=== PATIENT | female | born 1985 | race Two or more races ===

== ENCOUNTER 2022-08-09 19:02 | Emergency (ER) | payer OTHER ==
[2022-08-09 19:13] VITALS: BP 129/83; PULSE 102; RESP 18; TEMP 99; BMI 19.7
[2022-08-09 21:27] LABS: BASO % 0.5 % (0-2.0); HEMATOCRIT 37.5 % (32.4-45.2); HEMOGLOBIN 12.9 GM/dL (10.7-15.3); LYMPH % 21.9 % (8-40); MCH 28.7 pg (25.7-33.7); MCHC 34.3 g/dl (32.0-36.0); MEAN CELL VOLUME 83.6 fl (80-96); MEAN PLT VOLUME 8.4 fl (7.5-11.1); MONO % 3.6 % (3.8-10.2); PLATELET COUNT 320 10^3/uL (134-434); RBC 4.49 M/mm3 (3.60-5.2); RDW 13.4 % (11.6-15.6); WHITE BLOOD COUNT 6.2 K/mm3 (4.0-10.0)
[2022-08-09 21:59] LABS: CALCIUM 9.4 mg/dL (8.5-10.1)
[2022-08-09 22:00] LABS: ALBUMIN 4.2 g/dl (3.4-5.0); BLOOD UREA NITROGEN 11.4 mg/dL (7-18)
[2022-08-09 22:04] LABS: BILIRUBIN,TOTAL 0.4 mg/dL (0.2-1); TOT PROT 7.6 g/dl (6.4-8.2)
== END 2022-08-10 00:09 | disposition home or self-care (01) ==
LOC: JER 19:02
DX: R10.12 Left upper quadrant pain (principal)
CPT/HCPCS: 36415; 74177-TC; 80053; 83690; 84703; 85025; 86850; 86900; 86901; 99285-25; Q9967